=== PATIENT | female | born 1945 | race Caucasian/White ===

== ENCOUNTER → 2020-08-01 | Outpatient (CLI) | payer MEDICARE, OTHER ==
[~2020-08-01] MED LIST: ASPI81TA45 PO; BENA1TAB10 PO; CALC1TAB PO; CETI-158 PO; CHOL10003 PO; CITA10TA4 PO; CITA20TA6 PO; COLE625T12 PO; GABA300C PO; KRIL1CAP9 PO; LEVO50TA5 PO; LIFI1DRO EACHEYE; MELO7.5T31 PO; METF500T17 PO; MULT-658 PO; MULT-672 PO; OMEP40CA8 PO; PROP1DRO6 EACHEYE; ROSU20TA2 PO; URSO300C27 PO; VITAMIN B12 PO; WELCHOL PO
[2020-08-01 11:44] LABS: BASOPHILS % (AUTO) 1 % (0-1); EOSINOPHILS % (AUTO) 2 % (1-7); LYMPHOCYTES % (AUTO) 24 % (22-44); MD NO; MEAN CORPUSCULAR HEMOGLOBIN 30.4 pg (27.0-34.8); MEAN CORPUSCULAR HGB CONC 33.4 g/dL (32.4-35.8); MEAN PLATELET VOLUME 9.2 fL (7.4-10.4); MONOCYTES % (AUTO) 7 % (2-9); NEUTROPHILS % (AUTO) 68 % (42-75); PLATELET COUNT 237 x10^3/uL (130-400); RED BLOOD COUNT 3.92 x10^6/uL (3.82-5.3); RED CELL DISTRIBUTION WIDTH 14.2 % (9.6-15.2)
[2020-08-01 11:51] LABS: ALANINE AMINOTRANSFERASE 23 U/L (12-78); ALBUMIN 3.3 g/dL (3.4-5.0); ANION GAP 4 mmol/L (5-15); CALCIUM 8.6 mg/dL (8.5-10.1); CHLORIDE 115 mmol/L (98-107)
[2020-08-01 11:54] LABS: ALKALINE PHOSPHATASE 119 U/L (45-117); BILIRUBIN,TOTAL 0.6 mg/dL (0.2-1.0); CREATININE 0.88 mg/dL (0.55-1.02); INTERNATIONAL NORMALIZED RATIO 0.95 (0.93-1.1); PROTHROMBIN TIME 10.2 Seconds (9.6-11.5); TOTAL PROTEIN 6.5 g/dL (6.4-8.2)
== END | disposition home or self-care (01) ==
LOC: STAR 10:00
PROVIDERS: ATTEND Neurological Surgery
DX: Z01.818 Encounter for other preprocedural examination (principal); G25.0 Essential tremor; I49.3 Ventricular premature depolarization; Z20.822 Contact with and (suspected) exposure to COVID-19
CPT/HCPCS: 36415; 80053; 85025; 85610; 85730; 93005; U0003; U0005

== ENCOUNTER 2020-08-05 07:23 | Day surgery (SDC) | payer MEDICARE, BC ==
[~2020-08-05] VITALS: Ht 162.6 cm; Wt 73.0 kg
[2020-08-05] MEDS ORDERED: FENTANYL PF 100 MCG/2ML ONE ×2 (07:45→10:20)
[2020-08-05] MEDS ORDERED: MIDAZOLAM 1 MG/ML, 2ML ONE (07:45)
[2020-08-05] MEDS ORDERED: PROPOFOL 10 MG/ML, 20ML ONE (07:47)
[2020-08-05 08:17] VITALS: BP 117/77
[2020-08-05] MEDS ORDERED: CHLORHEXIDINE 15 ML UDC PO ONE (09:00)
[2020-08-05] MEDS ORDERED: LACTATED RINGERS 1,000 ML IV SCH (09:00)
[2020-08-05] MEDS ORDERED: GADOTERATE 7.5 MMOL/15ML SYR ONE (09:59)
[2020-08-05] MEDS ORDERED: OXYcodone 5 MG/5 ML ORAL.SOL UDC PO PRN (10:30)
[2020-08-05] MEDS ORDERED: hydrALAzine 20 MG/ML, 1ML IV PRN (10:30)
[2020-08-05] MEDS ORDERED: ACETAMINOPHEN 325 MG TABLET PO PRN (10:30)
[2020-08-05] MEDS ORDERED: KETOROLAC 30 MG/1 ML IV PRN (10:30)
[2020-08-05] MEDS ORDERED: FENTANYL PF 100 MCG/2ML IV PRN (10:30)
[2020-08-05] MEDS ORDERED: LABETALOL 5MG/ML, 20ML IV PRN (10:30)
[2020-08-05] MEDS ORDERED: ONDANSETRON 2MG/ML, 2ML IVPush PRN (10:30)
[2020-08-05] MEDS ORDERED: ACETAMINOPHEN 650 MG/20.3 ML UDC ONE (10:36)
[2020-08-05] MEDS ORDERED: OXYcodone 5 MG/5 ML ORAL.SOL UDC ONE (10:37)
== END 2020-08-05 11:26 | disposition home or self-care (01) ==
LOC: OUT 07:23 → EDSTATUS 09:00 → OUT 11:26
PROVIDERS: ATTEND Neurological Surgery
DX: G25.0 Essential tremor (principal); G31.9 Degenerative disease of nervous system, unspecified; I10 Essential (primary) hypertension; E11.9 Type 2 diabetes mellitus without complications; Z79.1 Long term (current) use of non-steroidal anti-inflammatories (NSAID); Z79.82 Long term (current) use of aspirin; Z79.890 Hormone replacement therapy; Z79.899 Other long term (current) drug therapy; Z87.891 Personal history of nicotine dependence; Z88.8 Allergy status to other drugs, medicaments and biological substances
CPT/HCPCS: 70553; A9575; J2250; J2704; J3010; J7120

== ENCOUNTER → 2020-08-06 | Outpatient (CLI) | payer MEDICARE, BC ==
[~2020-08-06] MED LIST changes: +CEPH500T PO
[2020-08-06 13:21] LABS: MICROSCOPIC NOT IND
== END | disposition home or self-care (01) ==
LOC: LAB 12:36
DX: D72.829 Elevated white blood cell count, unspecified (principal)
CPT/HCPCS: 81003

== ENCOUNTER → 2020-08-13 | Outpatient (CLI) | payer MEDICARE, BC | END | disposition home or self-care (01) | LOC: STAR 10:09 | PROVIDERS: ATTEND Neurological Surgery | DX: Z20.822 Contact with and (suspected) exposure to COVID-19 (principal) | CPT/HCPCS: U0003; U0005 ==

== ENCOUNTER 2020-08-19 10:58 | Day surgery (SDC) | payer MEDICARE, BC ==
[~2020-08-19] VITALS: Ht 162.6 cm; Wt 71.4 kg
[2020-08-19] MEDS ORDERED: EPINEPHRINE 1 MG/ML, 1ML ONE (11:32)
[2020-08-19] MEDS ORDERED: BACITRACIN 50,000 UNIT ONE (11:32)
[2020-08-19] MEDS ORDERED: BUPIVACAINE/PF 0.5% ONE (11:32)
[2020-08-19] MEDS ORDERED: LACTATED RINGERS 1,000 ML IV SCH (12:30)
[2020-08-19] MEDS ORDERED: CHLORHEXIDINE 15 ML UDC PO ONE (12:30)
[2020-08-19 12:37] VITALS: BP 144/79
[2020-08-19] MEDS ORDERED: FENTANYL PF 250 MCG/5ML ONE ×3 (13:51)
[2020-08-19] MEDS ORDERED: CEFAZOLIN 1,000 MG ONE (14:26)
[2020-08-19] MEDS ORDERED: DEXAMETHASONE 4 MG/ML, 1ML ONE (14:26)
[2020-08-19] MEDS ORDERED: GLYCOPYRROLATE 0.2MG/1ML, 5ML ONE (14:26)
[2020-08-19] MEDS ORDERED: ONDANSETRON 2MG/ML, 2ML ONE (14:26)
[2020-08-19] MEDS ORDERED: PROPOFOL 10 MG/ML, 20ML ONE (14:26)
[2020-08-19] MEDS ORDERED: NEOSTIGMINE 1 MG/ML, 10ML ONE (14:26)
[2020-08-19] MEDS ORDERED: SUCCINYLCHOLINE 20 MG/ML, 10ML ONE (14:26)
[2020-08-19] MEDS ORDERED: ROCURONIUM 10MG/ML,5ML ONE (14:26)
[2020-08-19] MEDS ORDERED: BACITRACIN OINT 500U/GM, 15 GM ONE (15:37)
[2020-08-19] MEDS ORDERED: LABETALOL 5MG/ML, 20ML IV PRN (16:30)
[2020-08-19] MEDS ORDERED: HYDROmorphone 1 MG/ML, 1ML INJ IVPush PRN (16:30)
[2020-08-19] MEDS ORDERED: MEPERIDINE/PF 25MG/0.5ML IVPush PRN (16:30)
[2020-08-19] MEDS ORDERED: ACETAMINOPHEN 325 MG TABLET PO PRN (16:30)
[2020-08-19] MEDS ORDERED: FENTANYL PF 100 MCG/2ML IV PRN (16:30)
[2020-08-19] MEDS ORDERED: LORazepam 2 MG/ML, 1ML IVPush PRN (16:30)
[2020-08-19] MEDS ORDERED: hydrALAzine 20 MG/ML, 1ML IV PRN (16:30)
[2020-08-19] MEDS ORDERED: METHOCARBAMOL 1,000 MG in DEXTROSE 5% 100 ML IV PRN (16:30)
[2020-08-19] MEDS ORDERED: KETOROLAC 30 MG/1 ML IVPush PRN (16:30)
[2020-08-19] MEDS ORDERED: PROMETHAZINE 25 MG/ML, 1ML IVPush PRN (16:30)
[2020-08-19] MEDS ORDERED: EPHEDRINE 50 MG/ML, 1ML IVPush PRN (16:30)
[2020-08-19] MEDS ORDERED: HALOPERIDOL 5 MG/ML IV PRN (16:30)
[2020-08-19] MEDS ORDERED: OXYcodone 5 MG/5 ML ORAL.SOL UDC PO PRN (16:30)
[2020-08-19] MEDS ORDERED: ONDANSETRON 2MG/ML, 2ML IVPush PRN (16:30)
[2020-08-19] MEDS ORDERED: hydrALAzine 20 MG/ML, 1ML ONE (16:42)
== END 2020-08-19 18:47 | disposition home or self-care (01) ==
LOC: OUT 10:58
PROVIDERS: ATTEND Neurological Surgery
DX: G25.0 Essential tremor (principal); G20 Parkinson's disease; I10 Essential (primary) hypertension; K21.9 Gastro-esophageal reflux disease without esophagitis; E11.9 Type 2 diabetes mellitus without complications; G43.909 Migraine, unspecified, not intractable, without status migrainosus; Z79.1 Long term (current) use of non-steroidal anti-inflammatories (NSAID); Z79.82 Long term (current) use of aspirin; Z79.84 Long term (current) use of oral hypoglycemic drugs; Z79.890 Hormone replacement therapy; Z79.899 Other long term (current) drug therapy; Z87.891 Personal history of nicotine dependence; Z88.8 Allergy status to other drugs, medicaments and biological substances; Z98.1 Arthrodesis status; Z80.9 Family history of malignant neoplasm, unspecified
CPT/HCPCS: 61886; 82962; C1767; C1883; J0171; J0330; J0360; J0690; J1100; J2405; J2704; J2710; J3010; J7120